=== PATIENT | male | born 1940 | race Caucasian/White ===

== ENCOUNTER 2017-08-16 06:24 | Emergency (ER) | payer MEDICARE ==
[2017-08-16 06:54] LABS: #Monocytes 0.9 thou/uL (0.11-0.59); #Neutrophils 9.2 thou/uL (1.40-6.50); %Basophils 0.2 % (0.0-1.0); %Eosinophils 0.3 % (0.0-10.0); %Lymphocytes 8.6 % (21.0-51.0); %Monocytes 8.2 % (0.0-10.0); %Neutrophils 82.8 % (42.0-75.0); Hemoglobin 14.6 g/dL (14.0-18.0); Mean Corpuscular HGB CONC 34.2 g/dL (32.0-36.0); Mean Corpuscular Hemoglobin 29.8 pg (27.0-31.0); Mean Corpuscular Volume 87.3 fl (80.0-94.0); Mean Platelet Volume 9.1 fL (7.4-10.4); Platelet Count 159 thou/uL (130-400); RBC Distribution Width 12.6 % (11.5-14.5); Red Blood Cell (RBC) Count 4.91 mill/uL (4.70-6.10); White Blood Cell (WBC) Count 11.1 thou/uL (4.8-10.8)
[2017-08-16 06:56] LABS: Bilirubin Negative (Negative); Blood, Urine Large (Negative); Clarity CLEAR (Clear); Glucose, Urine (Dipstick) Negative (Negative); Leukocyte Negative (Negative); Nitrite Negative (Negative); Protein, Urine (Dipstick) Negative (Neg-Trace); Specific Gravity, Urine 1.023 (1.002-1.036); Urobilinogen 0.2 mg/dL (0.2-1.0)
[2017-08-16 06:58] LABS: Bacteria/HPF None Seen HPF (None Seen); Hyaline Casts/LPF 0-3 HYALINE CAST LPF (0-3 Hyaline); RBC/HPF 21-50 HPF (0-3); Squamous Epithelial None Seen HPF (0-3); WBC/HPF None Seen HPF (0-3)
[2017-08-16] MEDS ORDERED: Ketorolac Tromethamine 30 MG/ML VIAL ONE (07:10)
[2017-08-16 07:17] LABS: ALT (SGPT) 12 U/L (8-55); AST (SGOT) 21 U/L (5-34); Albumin 4.1 g/dL (3.4-4.8); Alkaline Phosphatase 78 U/L (40-150); Anion Gap 11 mmol/L (10-20); BUN (Urea Nitrogen) 30 mg/dL (8.4-25.7); Bilirubin, Total 0.9 mg/dL (0.2-1.2); Calc. Creatinine Clearance 0 mL/min (70-130); Calcium 9.5 mg/dL (7.8-10.44); Carbon Dioxide 26 mmol/L (23-31); Chloride 103 mmol/L (98-107); Estimated GFR-MDRD 38; Globulin 2.8 g/dL (2.4-3.5); Glucose 186 mg/dL (83-110); Lipase 13 U/L (8-78); Potassium 4.4 mmol/L (3.5-5.1); Protein, Total 6.9 g/dL (5.8-8.1); Sodium 136 mmol/L (136-145)
[2017-08-16] MEDS ORDERED: Ondansetron HCl/PF 4 MG/2 ML Vial ONE (07:20)
--- NOTE | 2017-08-16 08:05 | CT ---
ABDOMEN AND PELVIS CT SCAN WITHOUT IV CONTRAST: History: 77-year-old male with history of right flank pain radiating to the region of the umbilicus. Comparison: 03-21-13 FINDINGS: The lung bases are clear. Probable small hiatal hernia. The visualized liver, pancreas, spleen, and a drenal glands are unremarkable as evaluated without IV contrast. There is an obstructing 0.8 x 0.9 cm diameter somewhat irregular shaded calculus at the right ureteropelvic junction with several other n onobstructing right renal calculi. There is some moderate dilatation of the right upper renal collect ing system with some fairly prominent perirenal and periureteral fat stranding on the right side, pro bably related to obstruction although this could be seen with associated pyelonephritis as well. No e vidence of left sided calculus. Normal appearing appendix. Bilateral fat containing inguinal herni a is larger on the right side extending almost into the scrotum. Multilevel lumbar spine spondylosis. IMPRESSION: Obstructing calculus on the right side at the ureteropelvic junction with moderate proximal upper col lecting system dilatation and perirenal and periureteral fat stranding. Bilateral fat containing ingu inal hernia, larger on the right side, extending into the right scrotum. Other findings as above. POS: MIYA
== END 2017-08-16 10:05 | disposition home or self-care (01) ==
LOC: ERS 06:24
DX: N13.2 Hydronephrosis with renal and ureteral calculous obstruction (principal); E11.9 Type 2 diabetes mellitus without complications; I25.2 Old myocardial infarction; E78.5 Hyperlipidemia, unspecified; Z87.891 Personal history of nicotine dependence; Z79.899 Other long term (current) drug therapy
CPT/HCPCS: 74176; 80053; 81003; 81015; 83690; 85025; 87086; 96361; 96374; 96375; J1885; J2270; J2405

== ENCOUNTER 2017-08-17 17:50 | Day surgery (SDC) | payer MEDICARE ==
[~2017-08-17 17:50] MED LIST: Lidocaine 1% PF 5 ML VIAL ONE; Ondansetron HCl/PF 4 MG/2 ML Vial ONE; PHENYLEPHRINE-NS 100 MCG/ML 10 ML SYRINGE ONE; Propofol 200 MG/20 ML VIAL ONE
[2017-08-17] MEDS ORDERED: Iothalamate Meglumine 60% 50 ML VIAL FS ONE (20:35)
[2017-08-17] MEDS ORDERED: Fentanyl 100 MCG/2 ML VIAL ONE ×2 (20:36→21:51)
[2017-08-17] MEDS ORDERED: CEFAZOLIN/Water 2 GM/20 ML SYRINGE ONE (21:45)
[2017-08-17] MEDS ORDERED: Promethazine HCl 25 MG/ML VIAL SLOW IVP PRN (22:35)
[2017-08-17] MEDS ORDERED: Ondansetron HCl/PF 4 MG/2 ML Vial IVP PRN (22:35)
[2017-08-17] MEDS ORDERED: Promethazine HCl 25 MG/ML VIAL IM PRN (22:35)
--- NOTE | 2017-08-17 22:59 | RAD ---
RETROGRADE PYELOGRAM 08/17/17 COMPARISON: None. HISTORY: Right flank pain. FINDINGS: Five images are provided. Images demonstrate contrast media injected into the right ureter followed b y placement of a right double-J ureteral stent. IMPRESSION: Retrograde pyelogram as above. POS: MIYA
--- NOTE | 2017-08-18 00:37 | OP ---
DATE OF PROCEDURE: 08/17/2017 PREOPERATIVE DIAGNOSIS: Right ureteral stone with colic. POSTOPERATIVE DIAGNOSIS: Right ureteral stone with colic. PROCEDURE PERFORMED: Cysto, right retrograde, right stent. SURGEON: Dr. Leo Wahl ANESTHETIC: General. ESTIMATED BLOOD LOSS: Not recorded. FINDINGS: He had an obstructing stone in the proximal ureter on CT scan, there was an area of obstru ction and the retrograde study. The stone itself was not easily visualized in his KUB, but had a lot of gas. In his intestinal tract, he had lot of old blood and brown urine that immediately started d raining once the guidewire past the stone. We had to actually use a Glidewire to get by it, as the G lidewire would not pass it. INDICATIONS FOR SURGERY: This is a 77-year-old man who is coming in emergently now for stent placeme nt because of severe right colic requiring an ER visit yesterday and today requiring pain medication at home that did not control the pain. He had a mild increase in his creatinine yesterday and becaus e of his pain could not be controlled, and it has been miserable, we elected to proceed emergently on with stent placement tonight. OPERATIVE TECHNIQUE: After obtaining written and verbal consent from the patient after receiving IV Ancef, he was taken to the operating suite. He was placed in the supine position on the treatment ta ble. PlexiPulses placed on his lower extremities and turned on. He was given a general anesthetic a nd oral obturator airway was placed. He was placed in the dorsal lithotomy position and sterilely pr epped and draped. A reprint sorter KUB was taken with the fluoroscopy unit. Cystoscopy was performed with a 22 [place] sheath. It was passed to the level of the penoscrotal junction with the aid of a 30 degree lens. 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 At the membranous urethra there was a smaller caliber stricture, we fed a guidewire across and then follow that easily with a 22-[place]izen [place] sheath through the prostatic urethra into the bladder. There we re a couple of tiny little stones on the floor of the bladder and no bladder tumor noted 2 ureteral o rifices. We fed a Pollack catheter about 2 cm up the right ureter and injected contrast in a retrogr watson manner, saving images, it went all the way up to the proximal ureter where it stopped and then in jecting a little bit more. We can get some contrast to go by that. We initially fed open-ended cath eter up this area and tried to get a guidewire by it, could not get the wire by it, so we brought in an angle-tipped Glidewire and this did go by it and that allowed us to plan placed the Pollack cathet er by this up in the renal pelvis. At this point, there was a very brisk efflux through the Pollack catheter around it and concentrated brown old bloody urine. We placed a guidewire through the open-e nded catheter, removed the open-ended catheter, placed a 6 [place] x 24 cm right double-J stent over t he guidewire, pushing up into place with aid of a pusher, so its proximal end coiled in the renal pel vis and its distal end coiled in the bladder when the wire was removed. It was effluxing old bloody urine easily through the distal end of the stent. The bladder was drained, the instruments were hao obdulia. The patient was taken out of dorsal lithotomy position, awakened, extubated, and taken by veronika perez to the recovery room.
== END 2017-08-17 23:55 | disposition home or self-care (01) ==
LOC: SDC 17:50
PROVIDERS: ATTEND Urology
PROC: 0T768DZ Dilation of Right Ureter with Intraluminal Device, Via Natural or Artificial Opening Endoscopic (ICD-10-PCS; principal; 2017-08-17)
DX: N20.1 Calculus of ureter (principal); I25.10 Atherosclerotic heart disease of native coronary artery without angina pectoris; I25.2 Old myocardial infarction; E78.00 Pure hypercholesterolemia, unspecified; E11.9 Type 2 diabetes mellitus without complications; Z79.82 Long term (current) use of aspirin; Z79.899 Other long term (current) drug therapy
CPT/HCPCS: 52332; 74420; 96374; C1758; C1769; J2001; J2405; J2704; J3010; Q9961

== ENCOUNTER 2017-08-23 08:16 | Day surgery (SDC) | payer MEDICARE ==
[2017-08-22 13:34] VITALS: BMI 28.8
[2017-08-23] MEDS ORDERED: Iothalamate Meglumine 60% 50 ML VIAL FS ONE (10:38)
[2017-08-23] MEDS ORDERED: Levofloxacin 500 mg/D5W 100 ml Premix Bag ONE (10:46)
[2017-08-23] MEDS ORDERED: Fentanyl 100 MCG/2 ML VIAL ONE (10:52)
--- NOTE | 2017-08-23 13:39 | OP ---
DATE OF PROCEDURE: 08/23/2017 PREOPERATIVE DIAGNOSIS: Right ureteral stone. POSTOPERATIVE DIAGNOSIS: Right renal stones. PROCEDURES PERFORMED: Right ureteroscopy, laser lithotripsy, stone retrieval, and stent replacement. SURGEON: Dr. Leo Wahl. ANESTHESIA: General. ESTIMATED BLOOD LOSS: Minimal. FINDINGS: He had an 8-9 mm stone that has been in his right proximal ureter. It was now in his righ t lower pole. He had two smaller 2-3 mm stones adjacent to it. DRAINS PLACED: 6 x 24 Polaris double-J stent with string attached. OPERATIVE TECHNIQUE: After obtaining written verbal consent from the patient receiving IV antibiotic s, he was taken the operating suite. He was placed in supine position on the treatment table. Plexi Pulses were placed on his lower extremities and turned on. He was given a general anesthetic, oral o bturator intubation. He was then placed in the dorsal lithotomy position, sterilely prepped and drap ed. Cystoscopy was performed with a 22-[place] sheath. This was well lubricated and passed under dir ect vision through the male urethra and into the urinary bladder with aid of a video camera monitor a nd a 30-degree lens. The bladder was filled and emptied and then the distal end of the indwelling st ent was grasped with a pair of flexible grasping forceps, brought out through the urethral meatus and a 0.038 guidewire was fed through this up in the renal pelvis. A dual-lumen catheter was placed ove r this wire up to about 3/[address] Estimated length of the ureter and contrast injected thro ugh the other port filling out a normal appearing collecting system. A second wire was fed through t his dual-lumen catheter and the catheter was removed leaving two wires are both up in the renal pelvi s. We then brought in a middle size of the ureteral sheath with obturator. The obturator easily zenobia t up the sheath, easily went up over it. We left the sheath up as far as it would go into the proxim al ureter removing the operating the guidewire. We then brought in the flexible ureteroscope and und er direct vision passed this through the sheath up the ureter and up into the collecting system of th e kidney. We inspected the collecting system finding of this stone as well as 2 smaller stones in th e right lower pole calyceal system. We grasped and removed intact the two smaller stones. The large r stone we were able to use the basket to push out of this and up into the area of the renal pelvis a nd up towards the upper pole jeet were be easier to get with the laser. We then went ahead and bro ught in a Holmium laser broken up into numerous small fragments using a nitinol basket to remove thes e fragments. We did this and we found no other sizable stone fragments remaining in the upper, mid o r lower collecting system. At this point, the sheath was removed under direct vision using a flexibl e sheath just proximal to its start looking at the ureter. There were no other stone fragments or ab normalities noted. Through our guidewire that was remaining, 5-[place] Tracy catheter was placed an d then contrast injected showing no extravasation along the calyceal system or in the upper, mid or d istal ureter. The wire was then replaced and backloaded through the cystoscope and then a stent was placed over the guidewire, pushing up with a pusher so its proximal end coiled in the renal pelvis an d its distal end coiled in the bladder when the wire was removed. The patient was then awakened and extubated and taken by stretcher to recovery room.
--- NOTE | 2017-08-23 14:48 | RAD ---
RIGHT RETROGRADE UROGRAM: DATE: 08/23/17. HISTORY: Right UPJ calculated noted on prior CT exam on 08/16/17. The patient had right ureteral stent placed on the study of 08/17/17. COMPARISON: Study on 08/17/17. FINDINGS: Initial geospatial intelligence analyst image demonstrates a catheter overlying the expected location of the distal right urete r. Subsequent imaging demonstrates a guide catheter and guidewire in place within the right ureter a nd the catheter is overlying the right renal collecting system. There is opacification of the right renal collecting system and portion of the ureter without hydronephrosis. The final image demonstrat es placement of the right ureteral stent. Correlation with intraoperative findings is recommended. IMPRESSION: Retrograde pyelogram as described above. POS: MIYA
[2017-08-23] MEDS ORDERED: Tamsulosin HCl 0.4 MG CAP ONE (14:53)
[2017-08-23] MEDS ORDERED: Lidocaine 1% PF 5 ML VIAL ONE (16:45)
[2017-08-23] MEDS ORDERED: PHENYLEPHRINE-NS 100 MCG/ML 10 ML SYRINGE ONE (16:45)
[2017-08-23] MEDS ORDERED: Glycopyrrolate 0.2 MG/ML 5 ML SYRINGE ONE (16:45)
[2017-08-23] MEDS ORDERED: Propofol 200 MG/20 ML VIAL ONE (16:45)
[2017-08-23] MEDS ORDERED: ePHEDrine/0.9% NaCl/PF SYRINGE 50 mg/10 ml ONE (16:45)
[2017-08-23] MEDS ORDERED: Ondansetron HCl/PF 4 MG/2 ML Vial ONE (16:45)
== END 2017-08-23 18:30 | disposition home or self-care (01) ==
LOC: SDC 08:16
PROVIDERS: ATTEND Urology
PROC: 0TC04ZZ Extirpation of Matter from Right Kidney, Percutaneous Endoscopic Approach (ICD-10-PCS; principal; 2017-08-23)
PROC: 0T9680Z Drainage of Right Ureter with Drainage Device, Via Natural or Artificial Opening Endoscopic (ICD-10-PCS; 2017-08-23)
DX: N20.0 Calculus of kidney (principal); I25.10 Atherosclerotic heart disease of native coronary artery without angina pectoris; I25.2 Old myocardial infarction; I10 Essential (primary) hypertension; E78.00 Pure hypercholesterolemia, unspecified; M19.90 Unspecified osteoarthritis, unspecified site; E78.5 Hyperlipidemia, unspecified; G89.29 Other chronic pain; M54.9 Dorsalgia, unspecified; Z87.891 Personal history of nicotine dependence; Z79.82 Long term (current) use of aspirin; Z79.899 Other long term (current) drug therapy
CPT/HCPCS: 51798; 74420; 82365; 88300; C1758; J1956; J2001; J2405; J2704; J3010; Q9961

== ENCOUNTER 2018-03-17 10:14 | Emergency (ER) | payer MEDICARE | END 2018-03-17 11:17 | disposition home or self-care (01) | LOC: ERS 10:14 | DX: H57.12 Ocular pain, left eye (principal); E11.9 Type 2 diabetes mellitus without complications; I25.2 Old myocardial infarction; E78.5 Hyperlipidemia, unspecified; Z87.891 Personal history of nicotine dependence; Z79.899 Other long term (current) drug therapy | CPT/HCPCS: 99283 ==

== ENCOUNTER 2021-06-12 02:18 | Inpatient (IN) | payer MEDICARE ==
[2021-06-12 03:09] LABS: Bacteria/HPF None Seen HPF (None Seen); Bilirubin Negative (Negative); Blood, Urine 3+ (Negative); Clarity Clear (Clear); Glucose, Urine (Dipstick) Normal (Negative); Ketone, Urine Negative (Negative); Leukocyte Negative Leu/uL (Negative); Nitrite Negative (Negative); Protein, Urine (Dipstick) 10 mg/dL (Neg-Trace); RBC/HPF Greater than 50 HPF (0-3); Specific Gravity, Urine 1.018 (1.002-1.036); Squamous Epithelial None Seen HPF (0-3); Urobilinogen Normal mg/dL (Less than 2); WBC/HPF 0-3 HPF (0-3); pH, Urine 5.5 (5.0-9.0)
[2021-06-12] MEDS ORDERED: Ketorolac Tromethamine 30 MG/ML VIAL ONE (03:15)
[2021-06-12] MEDS ORDERED: Ondansetron PF 4 MG/2 ML Vial ONE ×2 (03:17→11:13)
[2021-06-12 03:31] LABS: Anion Gap 13 mmol/L (10-20); BUN (Urea Nitrogen) 35 mg/dL (8.4-25.7); Calc. Creatinine Clearance 0 mL/min (70-130); Calcium 9.7 mg/dL (7.8-10.44); Carbon Dioxide 29 mmol/L (23-31); Chloride 100 mmol/L (98-107); Glucose 165 mg/dL (83-110); Potassium 4.8 mmol/L (3.5-5.1); Sodium 137 mmol/L (136-145)
[2021-06-12 05:10] LABS: #Eosinphils 0.1 thou/uL (0.0-0.7); #Lymphocytes 1.1 thou/uL (1.20-3.40); #Monocytes 0.7 thou/uL (0.11-0.59); #Neutrophils 8.3 thou/uL (1.40-6.50); %Basophils 0.2 % (0.0-1.0); %Eosinophils 0.9 % (0.0-10.0); %Lymphocytes 10.3 % (21.0-51.0); %Monocytes 6.4 % (0.0-10.0); %Neutrophils 82.2 % (42.0-75.0); Hemoglobin 14.3 g/dL (14.0-18.0); Mean Corpuscular HGB CONC 33.9 g/dL (32.0-36.0); Mean Corpuscular Hemoglobin 29.9 pg (27.0-31.0); Mean Platelet Volume 8.9 fL (7.4-10.4); Platelet Count 165 thou/uL (130-400); RBC Distribution Width 12.3 % (11.5-14.5); Red Blood Cell (RBC) Count 4.79 mill/uL (4.70-6.10); White Blood Cell (WBC) Count 10.1 thou/uL (4.8-10.8)
[2021-06-12 05:34] VITALS: BMI 28.8
[2021-06-12 05:43] LABS: SARS-CoV-2 NAA Rapid Test Not Detected (NotDetected)
[2021-06-12] MEDS ORDERED: Fentanyl 100 MCG/2 ML VIAL SLOW IVP PRN (06:05)
[2021-06-12] MEDS ORDERED: Sodium Chloride 0.9% 1,000 ML IV SCH (06:15)
[2021-06-12] MEDS ORDERED: Acetaminophen 325 MG TAB PO PRN (08:34)
[2021-06-12] MEDS ORDERED: Ondansetron PF 4 MG/2 ML Vial IVP PRN (08:34)
[2021-06-12] MEDS ORDERED: HumaLOG 300 UNITS/3 ML VIAL SC PRN ×2 (08:34)
[2021-06-12] MEDS ORDERED: Dextrose 5% in Water 1,000 ML IV PRN (08:34)
[2021-06-12] MEDS ORDERED: Dextrose 50% Abboject 50 ML SYRINGE SLOW IVP PRN (08:34)
[2021-06-12] MEDS ORDERED: hydrALAZINE 20 MG/ML VIAL SLOW IVP PRN (08:34)
[2021-06-12] MEDS: Enoxaparin Sodium 40 MG/0.4 ML SYRINGE SC SCH (09:27)
[2021-06-12] MEDS ORDERED: Iothalamate Meglumine 60% 50 ML VIAL FS ONE (11:05)
[2021-06-12] MEDS ORDERED: PROPOFOL 200 MG/20 ML VIAL ONE (11:13)
[2021-06-12] MEDS ORDERED: Lidocaine 1% PF 5 ML VIAL ONE ×2 (11:13→11:34)
[2021-06-12] MEDS ORDERED: Levofloxacin 500 mg/D5W 100 ml Premix Bag ONE (11:35)
[2021-06-12] MEDS ORDERED: Oxybutynin 5 MG TAB PO PRN (11:52)
[2021-06-12] MEDS ORDERED: Mag-Al 1200 mg/1200 mg/30 ML UDCUP PO PRN (11:52)
[2021-06-12] MEDS ORDERED: Phenazopyridine HCl 97.5 MG TABLET PO PRN (11:52)
[2021-06-12] MEDS ORDERED: HYDROcodone/Acetaminophen 5/325 mg Tablet PO PRN ×2 (11:52)
[2021-06-12] MEDS ORDERED: diphenhydrAMINE 50 MG/ML VIAL IVP PRN (11:52)
[2021-06-12] MEDS ORDERED: Promethazine HCl 25 MG/ML VIAL IVPB PRN (11:56)
[2021-06-12] MEDS ORDERED: Promethazine HCl 25 MG/ML VIAL IM PRN (11:56)
[2021-06-12] MEDS ORDERED: Ondansetron HCl/PF 4 MG/2 ML Vial IVP PRN (11:56)
[2021-06-12] MEDS: Sodium Chloride 0.9% 1,000 ML IV SCH ×2 (13:23→23:00)
[2021-06-12] MEDS ORDERED: Phenazopyridine HCl 100 MG TAB PO PRN (15:40)
[2021-06-12] MEDS: Docusate 100 MG CAP PO SCH (19:58)
[2021-06-12] MEDS: Famotidine/PF 20 mg/2ml Vial SLOW IVP SCH (19:58)
[2021-06-13 06:11] LABS: #Eosinphils 0.1 thou/uL (0.0-0.7); #Lymphocytes 1.5 thou/uL (1.20-3.40); #Monocytes 0.7 thou/uL (0.11-0.59); #Neutrophils 6.2 thou/uL (1.40-6.50); %Basophils 0.3 % (0.0-1.0); %Lymphocytes 17.3 % (21.0-51.0); %Monocytes 8.3 % (0.0-10.0); %Neutrophils 73.2 % (42.0-75.0); Mean Corpuscular HGB CONC 32.9 g/dL (32.0-36.0); Mean Corpuscular Hemoglobin 29.3 pg (27.0-31.0); Mean Corpuscular Volume 89.1 fL (78.0-98.0); Platelet Count 144 thou/uL (130-400); RBC Distribution Width 12.4 % (11.5-14.5); Red Blood Cell (RBC) Count 4.45 mill/uL (4.70-6.10); White Blood Cell (WBC) Count 8.4 thou/uL (4.8-10.8)
[2021-06-13 06:32] LABS: Anion Gap 12 mmol/L (10-20); BUN (Urea Nitrogen) 27 mg/dL (8.4-25.7); Calc. Creatinine Clearance 39 mL/min (70-130); Calcium 8.5 mg/dL (7.8-10.44); Carbon Dioxide 23 mmol/L (23-31); Chloride 107 mmol/L (98-107); Glucose 141 mg/dL (83-110); Potassium 4.6 mmol/L (3.5-5.1); Sodium 137 mmol/L (136-145)
[2021-06-13] MEDS: Sodium Chloride 0.9% 1,000 ML IV SCH ×2 (09:43→18:35)
[2021-06-13] MEDS: Famotidine/PF 20 mg/2ml Vial SLOW IVP SCH ×2 (09:44→21:09)
[2021-06-13] MEDS: Tamsulosin HCl 0.4 MG CAP PO SCH (09:44)
[2021-06-13] MEDS: Docusate 100 MG CAP PO SCH ×2 (09:44→21:09)
[2021-06-13] MEDS: Enoxaparin Sodium 40 MG/0.4 ML SYRINGE SC SCH (09:44)
[2021-06-13] MEDS ORDERED: Rosuvastatin 10 MG TAB PO SCH (21:00)
[2021-06-14] MEDS: Sodium Chloride 0.9% 1,000 ML IV SCH (04:11)
[2021-06-14 05:22] LABS: #Eosinphils 0.1 thou/uL (0.0-0.7); #Lymphocytes 1.6 thou/uL (1.20-3.40); #Monocytes 0.7 thou/uL (0.11-0.59); #Neutrophils 4.4 thou/uL (1.40-6.50); %Basophils 0.7 % (0.0-1.0); %Lymphocytes 23.1 % (21.0-51.0); %Monocytes 10.4 % (0.0-10.0); %Neutrophils 63.8 % (42.0-75.0); Hemoglobin 12.4 g/dL (14.0-18.0); Mean Corpuscular Hemoglobin 29.1 pg (27.0-31.0); Mean Corpuscular Volume 88.1 fL (78.0-98.0); Platelet Count 146 thou/uL (130-400); RBC Distribution Width 12.2 % (11.5-14.5); Red Blood Cell (RBC) Count 4.28 mill/uL (4.70-6.10); White Blood Cell (WBC) Count 6.9 thou/uL (4.8-10.8)
[2021-06-14 05:41] LABS: Anion Gap 9 mmol/L (10-20); BUN (Urea Nitrogen) 24 mg/dL (8.4-25.7); Calc. Creatinine Clearance 43 mL/min (70-130); Carbon Dioxide 26 mmol/L (23-31); Chloride 108 mmol/L (98-107); Glucose 145 mg/dL (83-110); Potassium 4.3 mmol/L (3.5-5.1); Sodium 139 mmol/L (136-145)
[2021-06-14] MEDS ORDERED: metFORMIN 500 MG TAB PO SCH ×2 (08:00→17:00)
[2021-06-14] MEDS: Tamsulosin HCl 0.4 MG CAP PO SCH (08:18)
[2021-06-14] MEDS: Docusate 100 MG CAP PO SCH (08:18)
[2021-06-14] MEDS: Famotidine/PF 20 mg/2ml Vial SLOW IVP SCH (08:18)
[2021-06-14] MEDS: Enoxaparin Sodium 40 MG/0.4 ML SYRINGE SC SCH (08:19)
[2021-06-14] MEDS ORDERED: Aspirin 81 mg Enteric Coated Tablet PO SCH (09:00)
[2021-06-14] MEDS ORDERED: Ramipril 5 MG CAP PO SCH (09:00)
[2021-06-14 11:36] VITALS: BP 139/74; TEMP 98
== END 2021-06-14 14:46 | disposition home or self-care (01) | DRG 661 ==
LOC: ERS 02:18 → SURG A 04:38 → OBSVTOIN 06-14 13:27
PROVIDERS: ADMIT Internal Medicine; ATTEND Internal Medicine
PROC: 0T768DZ Dilation of Right Ureter with Intraluminal Device, Via Natural or Artificial Opening Endoscopic (ICD-10-PCS; principal; 2021-06-12)
PROC: 0T9B80Z Drainage of Bladder with Drainage Device, Via Natural or Artificial Opening Endoscopic (ICD-10-PCS; 2021-06-12)
PROC: 0T7D8ZZ Dilation of Urethra, Via Natural or Artificial Opening Endoscopic (ICD-10-PCS; 2021-06-12)
DX: N13.2 Hydronephrosis with renal and ureteral calculous obstruction (principal); N17.9 Acute kidney failure, unspecified; Z20.822 Contact with and (suspected) exposure to COVID-19; I25.10 Atherosclerotic heart disease of native coronary artery without angina pectoris; N18.9 Chronic kidney disease, unspecified; E11.22 Type 2 diabetes mellitus with diabetic chronic kidney disease; E78.5 Hyperlipidemia, unspecified; Z96.653 Presence of artificial knee joint, bilateral; N40.1 Benign prostatic hyperplasia with lower urinary tract symptoms; I12.9 Hypertensive chronic kidney disease with stage 1 through stage 4 chronic kidney disease, or unspecified chronic kidney disease; Z87.442 Personal history of urinary calculi; Z79.82 Long term (current) use of aspirin; Z79.84 Long term (current) use of oral hypoglycemic drugs; Z79.899 Other long term (current) drug therapy; I25.2 Old myocardial infarction; Z95.1 Presence of aortocoronary bypass graft; Z95.5 Presence of coronary angioplasty implant and graft; Z95.0 Presence of cardiac pacemaker; Z98.41 Cataract extraction status, right eye; Z98.42 Cataract extraction status, left eye; Z87.891 Personal history of nicotine dependence
CPT/HCPCS: 36415; 36416; 74176; 74420; 80048; 81003; 81015; 85025; 87086; 96372; 96374; 96375; 96376; C2617; G0378; J1650; J1885; J1956; J2405; J2704; J7050; Q9961-U8; S0028; U0002

== ENCOUNTER 2021-06-21 09:10 | Outpatient (CLI) | payer MEDICARE ==
[2021-06-21 10:19] LABS: Mean Corpuscular HGB CONC 33.5 g/dL (32.0-36.0); Mean Corpuscular Volume 86.4 fl (81.2-95.1); Mean Platelet Volume 11.8 fl (7.4-10.4); Platelet Count 205 10x3/uL (150-450); Red Blood Cell (RBC) Count 4.49 10x6/uL (4.32-5.72); White Blood Cell (WBC) Count 7.4 10x3/uL (3.5-10.5)
[2021-06-21 10:32] LABS: INR-International Normal Ratio 0.9; PTT 26.5 sec (22.0-33.0); Prothrombin Time 10.5 sec (9.5-12.1)
[2021-06-21 10:38] LABS: Anion Gap 11 mmol/L (10-20); BUN (Urea Nitrogen) 24 mg/dL (8.4-25.7); Calc. Creatinine Clearance 0 mL/min (70-130); Calcium 9.1 mg/dL (7.8-10.44); Carbon Dioxide 30 mmol/L (23-31); Chloride 101 mmol/L (98-107); Glucose 179 mg/dL (83-110); Potassium 4.9 mmol/L (3.5-5.1); Sodium 137 mmol/L (136-145)
[2021-06-21 22:24] LABS: SARS-CoV-2 PCR by NAA Not Detected (NotDetected)
== END 2021-06-21 09:11 | disposition home or self-care (01) ==
LOC: LABBT 09:10
PROVIDERS: ATTEND Urology
DX: Z01.818 Encounter for other preprocedural examination (principal); Z20.822 Contact with and (suspected) exposure to COVID-19
CPT/HCPCS: 80048; 85027; 85610; 85730; 87086; 93005; U0003; U0005; 93010

== ENCOUNTER 2021-06-23 11:47 | Day surgery (SDC) | payer MEDICARE ==
[2021-06-22 11:46] VITALS: BMI 28.8
[2021-06-23] MEDS ORDERED: Iothalamate Meglumine 60% 50 ML VIAL FS ONE (13:15)
[2021-06-23] MEDS ORDERED: Levofloxacin 500 mg/D5W 100 ml Premix Bag ONE (13:19)
[2021-06-23] MEDS ORDERED: Fentanyl 100 MCG/2 ML VIAL ONE ×2 (13:27→13:46)
[2021-06-23] MEDS ORDERED: Dexamethasone 20 MG/5 ML VIAL ONE (13:56)
[2021-06-23] MEDS ORDERED: Glycopyrrolate 0.2 MG/ML 5 ML SYRINGE ONE (13:56)
[2021-06-23] MEDS ORDERED: Lidocaine 1% PF 5 ML VIAL ONE (13:56)
[2021-06-23] MEDS ORDERED: Phenylephrine 10 MG/ML VIAL ONE (13:56)
[2021-06-23] MEDS ORDERED: Ondansetron PF 4 MG/2 ML Vial ONE (13:56)
[2021-06-23] MEDS ORDERED: PROPOFOL 200 MG/20 ML VIAL ONE (13:56)
[2021-07-01 12:39] LABS: Color Orange (.); Stone Weight 103 mg (.); Uric Acid 100 % (.)
== END 2021-06-23 21:20 | disposition home or self-care (01) ==
LOC: SDC 11:47
PROVIDERS: ATTEND Urology
PROC: 0TC38ZZ Extirpation of Matter from Right Kidney Pelvis, Via Natural or Artificial Opening Endoscopic (ICD-10-PCS; principal; 2021-06-23)
PROC: 0T768DZ Dilation of Right Ureter with Intraluminal Device, Via Natural or Artificial Opening Endoscopic (ICD-10-PCS; 2021-06-23)
DX: N20.0 Calculus of kidney (principal); I25.10 Atherosclerotic heart disease of native coronary artery without angina pectoris; I10 Essential (primary) hypertension; E78.5 Hyperlipidemia, unspecified; M19.90 Unspecified osteoarthritis, unspecified site; G89.29 Other chronic pain; M54.9 Dorsalgia, unspecified; K21.9 Gastro-esophageal reflux disease without esophagitis; E11.9 Type 2 diabetes mellitus without complications; Z87.891 Personal history of nicotine dependence; Z79.82 Long term (current) use of aspirin; Z79.84 Long term (current) use of oral hypoglycemic drugs; Z79.899 Other long term (current) drug therapy; Z95.0 Presence of cardiac pacemaker; Z95.1 Presence of aortocoronary bypass graft; Z46.6 Encounter for fitting and adjustment of urinary device; I25.2 Old myocardial infarction
CPT/HCPCS: 52356; 74420; 82365; 99283; C2617; Q9961; 88300; J1100; J1956; J2370; J2405; J2704; J3010

== ENCOUNTER 2021-06-23 23:22 | Emergency (ER) | payer MEDICARE | END 2021-06-24 00:41 | disposition home or self-care (01) | LOC: ERS 23:22 | PROC: 0T768DZ Dilation of Right Ureter with Intraluminal Device, Via Natural or Artificial Opening Endoscopic (ICD-10-PCS; principal; 2021-06-23) | PROC: 0TC38ZZ Extirpation of Matter from Right Kidney Pelvis, Via Natural or Artificial Opening Endoscopic (ICD-10-PCS; principal; 2021-06-23) | DX: Z46.6 Encounter for fitting and adjustment of urinary device (principal); I25.2 Old myocardial infarction; E11.9 Type 2 diabetes mellitus without complications; E78.5 Hyperlipidemia, unspecified; Z79.899 Other long term (current) drug therapy; Z79.84 Long term (current) use of oral hypoglycemic drugs; N20.0 Calculus of kidney; I25.10 Atherosclerotic heart disease of native coronary artery without angina pectoris; I10 Essential (primary) hypertension; M19.90 Unspecified osteoarthritis, unspecified site; G89.29 Other chronic pain; M54.9 Dorsalgia, unspecified; K21.9 Gastro-esophageal reflux disease without esophagitis; Z87.891 Personal history of nicotine dependence; Z79.82 Long term (current) use of aspirin; Z95.0 Presence of cardiac pacemaker; Z95.1 Presence of aortocoronary bypass graft | CPT/HCPCS: 74420; 82365; 88300; 99283; C2617; J1100; J1956; J2370; J2405; J2704; J3010; Q9961-U8 ==

== ENCOUNTER 2021-06-27 10:39 | Emergency (ER) | payer MEDICARE | END 2021-06-27 13:34 | disposition home or self-care (01) | LOC: ERS 10:39 | DX: T83.038A Leakage of other urinary catheter, initial encounter (principal); E11.9 Type 2 diabetes mellitus without complications; I25.2 Old myocardial infarction; E78.5 Hyperlipidemia, unspecified | CPT/HCPCS: 99283 ==

== ENCOUNTER 2022-04-25 08:58 | Outpatient (CLI) | payer MEDICARE | END 2022-04-25 08:59 | disposition home or self-care (01) | LOC: BICULT 08:58 | PROVIDERS: ATTEND Internal Medicine Nephrology | DX: N18.30 Chronic kidney disease, stage 3 unspecified (principal) | CPT/HCPCS: 76770 ==